=== PATIENT | male | born 1960 | race Caucasian/White ===

== ENCOUNTER 2025-06-28 00:30 | Day surgery (SDC) | payer OTHER, SELFPAY ==
[2025-06-14 15:40] VITALS: BMI 26.4
--- OUTSIDE RECORDS SUMMARY | 2025-06-28 00:36 | XMS_ITS | Encounter Summary ---
Author Organization [facility] Address [address] [place] [address] Phone Care Team Providers Care Program Management Analyst Name Role Phone Rio Cummings MD Primary Care Provider [phone] Encounter Details Date Type Department Care Team (Late st Contact Info) Description 08/30/2017 Orders Only [facility] [address] [place] [address] Rio Cummings MD [address] [address] Screening for prostate cancer (Primary Dx); Routine lab draw Social History Tobacco Use Types Packs/Day Years Used Date Smoking Tobacco: Never Assessed Sex and Gender Information Value Date Recorded Sex Assigned at Not on file 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 Gender Identity Male 09/26/2020 10:57 AM CDT Sexual Orientation Straight 09/26/2020 10 :57 AM CDT documented as of this encounter Plan of Treatment Scheduled Orders Name Type Priority Associated Diagnoses Orde r Schedule CBC with auto differential Lab Routine Routine lab draw Expected: 04/01/2018, Expires: 08/30/2018 Comprehensive metabolic panel Lab Routine Routine lab draw Expected: 04/01/2018, Expires: 08/30/2018 Lipid panel Lab Routine Routine lab draw Expected: 04/01/2018, Expires: 08/30/2018 PSA screen Lab Routine Screening for prostate cancer Expected: 04/01/2018, Expires: 08/30/2018 documented as of this encounter Visit Diagnoses Diagnosis Screening for prostate cancer- Primary Special screening for malignant neoplasm of prostate Routine lab draw documented in this encounter Care Teams Program Management Analyst Relationship Specialty Start Date End Date Rio Cummings MD [address]OL[address] [place] [address] PCP - General 06/16/14 documented as of this encounter
--- OUTSIDE RECORDS SUMMARY | 2025-06-28 00:36 | XMS_ITS | Encounter Summary ---
Author Organization [facility] Address [address] [place] [address] Phone Care Team Providers Care Dealer Support Technician Name Role Phone Rio Cummings MD Primary Care Provider [phone] Encounter Details Date Type Department Care Team (Late st Contact Info) Description 04/02/2018 Orders Only [facility] [address] [place] [address] Rio Cummings MD [address] [address] Social History Tobacco Use Types Packs/Day Years Used Date Smoking Tobacco: Never Smokeless Tobacco: Never Alcohol Use Standard Drinks/Week Comments Yes 0 (1 standard drink = 0.6 oz pur e alcohol) 5 times a week Sex and Gender Information Value Date Recorded Sex Assigned at Not on file 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 Gender Identity Male 09/26/2020 10:57 AM CDT Sexual Orientation Straight 09/26/2020 10 :57 AM CDT documented as of this encounter Plan of Treatment Not on file documented as of this encounter Procedures Procedure Name Priority Date/Time Associated Diagnosis Comments SCAN - LABS 04/02/2018 11:34 AM CDT documented in this encounter Results * SCAN - LABS (04/02/2018 11:34 AM CDT) us Rio Cummings MD Final Resu lt documented in this encounter Visit Diagnoses Not on filedocumented in this encounter Care Teams Dealer Support Technician Relationship Specialty Start Date End Date Rio Cummings MD [address] [address] PCP - General 06/16/14 documented as of this encounter
--- OUTSIDE RECORDS SUMMARY | 2025-06-28 00:36 | XMS_ITS | Continuity of Care Document ---
Author Organization [facility] Address [address] [place] [address] [address] [place] [address] Phone Care Team Providers Care Metal Moulder Name Role Phone Jose PT, MS, Lai Unavailable Unavailable Procedures Procedure Date PT RE-EVALUATION THERAPEUTIC EXERCISES NEUROMUSCULAR RE-ED FUNC ACTIVITY HOT/COLD PACK THERAPEUTIC EXERCISES NEUROMUSCULAR RE-ED FUNC ACTIVITY HOT/COLD PACK THERAPEUTIC EXERCISES NEUROMUSCULAR RE-ED FUNC ACTIVITY HOT/COLD PACK THERAPEUTIC EXERCISES NEUROMUSCULAR RE-ED FUNC ACTIVITY HOT/COLD PACK ELECTRIC STIMULATION UNATT THERAPEUTIC EXERCISES NEUROMUSCULAR RE-ED MANUAL THERAPY FUNC ACTIVITY HOT/COLD PACK ELECTRIC STIMULATION UNATT PT EVALUATION THERAPEUTIC EXERCISES MANUAL THERAPY HOT/COLD PACK ELECTRIC STIMULATION UNATT Advance Directives Directive Yes / No Effective Date File Name No Information Encounters Encounter Description Practice Location Reason(s) For Visit Diagnoses Date Provider Providers Copied on Encounter [facility], [address] [place], [place] [address], [place], [place], [id number], [place] tel:[phone] [place] No Information 5 Jose Hoyt. [address] [facility], [address], [place], [address], [place]. tel:[phone] Referring Provider: Kendall [address], [place], [address]. tel:[phone] [place] [address] [place] [address], [id number], tel:[phone] [place] No Information Apr-0 3-201 5 Jose Lai. [address] [place] [address], [address], [place], [place], [facility], . tel: [phone] Referring Provider: Rio Cummings, [address], [place], [address]. tel:[phone] [place] [address], [id number], tel:[phone] [place] No Information Mar-2 7-201 5 Jose Lai. [address] [place] [address], [address], [place], [place], [facility], . tel: [phone] Referring Provider: Kendall [address], [place], [address]. tel:[phone] [place] [address] [place] [address], [id number], [place] tel:[phone] [place] No Information Mar-2 5-201 5 Jose Lai. [address] [place] [address], [address], [place], [place], [facility], . tel: [phone] Referring Provider: Kendall [address], [place], [address]. tel:[phone] [place] [address] [facility] [address] [place] [address], [id number], [place] tel:[phone] [place] No Information Mar-1 8-201 5 Jose Lai. [address] [place] [address], [address], [place], [place], [facility], . tel: [phone] Referring Provider: Kendall [address], [place], [address]. tel:[phone] [address] [place], [place] [id number] [facility] [address] [place] [address], [place], [id number], [place] tel:[phone] [place] 5 Jose Hoyt. [address] [facility], [address], [place], [address], [place]. tel:[phone] Referring Provider: Rio Cummings, [address], [place], [address]. tel:[phone] Family History Family Member Type Diagnosis Age At Onset No Information Payers Payer name Insurance type Covered libertarian ID Authoriza tianne(s) [facility] [id number] [facility] 2014 Social History Type Description Quantity Date Captured Comments Sex Male Smoking Status No Information Chief Complaint And Reason For Visit No Information Reason For Referral Reason For Referral No Information History Of Present Illness Encounter Date Complaint History Of Prese nt Illness No Information Functional Status Date Functional Assessmen t No Information Instructions Date Instruction Additional Infor mation No Information Assessments Type Assessment Date No Information Patient Care Teams Name Effective Dates (start - stop) Status Members No Information
--- OUTSIDE RECORDS SUMMARY | 2025-06-28 00:36 | XMS_ITS | Clinical Summary ---
Author Organization 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 Meanwhile arrange x ray of the right hand Routine physical examination 04/07/2018 Assessment & Plan (03/19/2025 12:49 PM CDT): IMMUNIZATIONS WERE REVIEWED EYE EXAM AND DENTAL UPTODATE RIGHT SHOULDER PAIN/ NECK PAIN ARRANGE X RAYS USE PRM MOBIC AVOID OTC NSAIDS RECTLA EXAM GUAIAC NEG ARRANGE COLONSCOPY CUCO MIXED HYPERLIPIMDEIA GOAL LDL IS UNDER 100 Assessment & Plan (03/19/2024 12:37 PM CDT): Immunizations were reviewed/ he is doing well / PHYSICAL exam was NL today / recTAL EXAM WAS DONE todayGUAIAC NEG / I am awaiting his labs FROM [facility] WE HAD CALLED THE LAB TO GET A FAX FROM THEM . PATIENT IS DUE FOR A COLONSCOPY WHICH WILL BE ARRANGE AT [place] UPON PATIENTS REQUEST A REFERRAL WILL BE SENT TODAY Chronic left shoulder pain 04/07/2018 Immunizations Immunization Administration Dates Next Due Flucelvax Influenza Quad 09/03/2020,11/29/2019 Influenza, Quadrivalent, Tabitha l Culture-based MDCK, Preservative Free, Antibiotic Free, Intramuscular 10/04/2023 Influenza, Quadrivalent, Spl it, Preservative Free, Intramuscular 09/15/2018 Influenza, Trivalent, Cell Culture-based MDCK, Preservative Free, Antibiotic Free, Intramuscular 07/23/2024 Influenza, Trivalent, IM (MDV) 09/23/2021 Influenza, Unspecified 09/01/2023(Deferr ed: Patient Refused),09/03/2020 Social History Tobacco Use Types Packs/Day Years Used Date Smoking Tobacco: Never Smokeless Tobacco: Never Tobacco Cessation:Counseling Given: Not Answered Alcohol Use Standard Drinks/Week Comments Yes 0 (1 standard drink = 0.6 oz pur e alcohol) 5 times a week PHQ-2 Answer Date Recorded PHQ-2 Total Score (If total score is 3 or more points, staff should administer the PHQ-9) 0 03/19/2025 Sex and Gender Information Value Date Recorded Sex Assigned at Not on file 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 Gender Identity Male 09/26/2020 10:57 AM CDT Sexual Orientation Straight 09/26/2020 10 :57 AM CDT Obstetrics History Last Filed Vital Signs Vital Sign Reading Time Taken Comments Blood Pressure 116/60 03/19/2025 8:18 AM CDT Pulse 52 03/19/2025 8:18 AM CDT Temperature 36.8 C (98.2 F) 03/19/2025 8:18 AM CDT Respiratory Rate 16 03/19/2025 8:1 8 AM CDT Oxygen Saturation 95% 03/19/2025 8:18 AM CDT Inhaled Oxygen Concentration - - Weight 83.8 kg (184 lb 12.8 oz) 03/19/2025 8:18 AM CDT Height 172.7 cm (5' 8) 03/19/2025 8:18 AM CDT Body Mass Index 28.1 03/19/2025 8:18 AM CDT Plan of Treatment Health Maintenance Due Date Last Done Comments Hepatitis C Screening 1960 Prostate Cancer Screening-PSA 1960 DTaP/Tdap/Td Vaccine (1 - Tdap) 1972 Hepatitis B Screening 1979 Zoster Vaccine (1 of 2) 2011 Colon Cancer Screening-Colonoscopy 03/31/2023 03/31/2013 Covid-19 Vaccine ( season) 2024 10/04/2023, 03/07/2023, 09/23/2021, Additional history exists Influenza Vaccine (#1) 2025 , 10/04/2023, 09/23/2021, Additional history exists Depression Screening 03/19/2026 03/19/2025, 03/13/2024, 07/06/2022 Regular Well Visit/Exam 18-64 03/19/2026 03/19/2025, 03/13/2024, 07/06/2022, Additional history exists Colon Cancer Screening-CT Colonography Discontinued 03/31/2013 Colon Cancer Screening-DNA Stool Discontinued 03/31/2013 Colon Cancer Screening-FIT Discontinued 03/31/2013 Colon Cancer Screening-Sigmoidoscopy Discontinued 03/31/2013 Pneumococcal vaccine <65 Aged Out No longer eligible based on patient's age to complete this topic Procedures Procedure Name Priority Date/Time Associated Diagnosis Comments COLONOSCOPY 03/31/2013 12:00 AM CDT from Last 3 Months or Most Recently Relevant to Health Maintenance Results * COLONOSCOPY (03/31/2013 12:00 AM CDT) Anatomical Region Laterality Modality Other Narrative 03/31/2013 12:00 AM CDT Ordered by an unspecified provider. Procedure Note Provider, MD Susu - 03/31/2013 12:00 AM CDT PROCEDURE REPORT Patient: DAIANA GOINS Account: [id number] Room No: : 1960 Patient Type: SDS Attend.: Blake Liz M.D. Admit Date: 03/31/2013 Dict.: Blake Liz M.D. Disch. Date: 03/31/2013 NAME OF PROCEDURE: Colonoscopy. DATE OF PROCEDURE: 03/31/13 REFERRING PHYSICIAN: Dr. Cummings. PREVIOUS PROCEDURE: None. X-RAYS: None. HISTORY AND PHYSICAL EXAM: The patient is a 52-year-old male referred nowfor screening colonoscopy. He denies any specific complaints. He isotherwise doing clinically well. PHYSICAL EXAMINATION: General: Is that of a well-developed,well-nourished white male in no acute distress. He is nonicteric. Lungs: His lungsare clear. Heart: Regular. GI: Soft, supple. Extremities: Showed nocalf pain, cords or edema. PREPROCEDURE DIAGNOSIS: Screening colonoscopy in a 52-year-old male. SURGEON: Blake Liz M.D. INSTRUMENT USED: Biomimedica video endoscope. MEDICATIONS: Per anesthesia. FINDINGS: The colonoscope was introduced into the rectum lateral positionand passed to the cecum. The patient tolerated procedure well. There wereno complications. On withdrawal of the colonoscope, the mucosa appearednormal with normal vascular pattern. No polyps or masses were noted in thececum, right, transverse or left colons. The rectosigmoid and rectum wereotherwise normal. Retroflex view of the internal anal area showed small internal hemorrhoidal tissue. Perianal exam showed no perianal disease, norectal masses. Prostate was normal for age. COMPLICATIONS: None. POSTPROCEDURE DIAGNOSES: Normal screening colonoscopy to cecum with a withdrawal time of 8 minutes and 42 seconds. Preparation was excellent. POSTPROCEDURE ORDERS: 1) Post sedation instructions. 2) High fiber diet. 3) [employer] screening recommendations for follow up inten years. 4) Follow up with Dr. Cummings. Blake Liz M.D. Sonam TD: 03/31/2013 14:51 CC: Rio Cummings M.D. Authenticated by Blake Liz MD On 04/06/2013 12:56:27 PM us Historical Provider ENDOSCOPY PROCEDURES Cathy l Result from Last 3 Months or Most Recently Relevant to Health Maintenance Insurance Care Teams Agent Ticketing Gate Relationship Specialty Start Date End Date Rio Cummings MD [address] [place] [address] PCP - General 06/16/14
--- OUTSIDE RECORDS SUMMARY | 2025-06-28 00:36 | XMS_ITS | Referral Summary ---
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 Gender Identity Male 09/26/2020 10:57 AM CDT Sexual Orientation Straight 09/26/2020 10 :57 AM CDT Last Filed Vital Signs Vital Sign Reading Time Taken Comments Blood Pressure 116/60 03/19/2025 8:18 AM CDT Pulse 52 03/19/2025 8:18 AM CDT Temperature 36.8 C (98.2 F) 03/19/2025 8:18 AM CDT Respiratory Rate 16 03/19/2025 8:18 AM CDT Oxygen Saturation 95% 03/19/2025 8:18 AM CDT Inhaled Oxygen Concentration - - Weight 83.8 kg (184 lb 12.8 oz) 03/19/2025 8:18 AM CDT Height 172.7 cm (5' 8) 03/19/2025 8:18 AM CDT Body Mass Index 28.1 03/19/2025 8:18 AM CDT Plan of Treatment Not on file Procedures Procedure Name Priority Date/Time Associated Diagnosis Comments COLONOSCOPY 03/31/2013 12:00 AM CDT from Last 3 Months or Most Recently Relevant to Health Maintenance Results * COLONOSCOPY (03/31/2013 12:00 AM CDT) Anatomical Region Laterality Modality Other Narrative 03/31/2013 12:00 AM CDT Ordered by an unspecified provider. Procedure Note Provider, MD Susu - 03/31/2013 12:00 AM CDT PROCEDURE REPORT Patient: DAIANA GOINS Account: [id number] Room No: : 1960 Patient Type: [facility] Attend.: Blake Liz M.D. Admit Date: 03/31/2013 Dict.: Blake Liz M.D. Disch. Date: 03/31/2013 NAME OF PROCEDURE: Colonoscopy. DATE OF PROCEDURE: 03/31/13 REFERRING PHYSICIAN: Dr. Cummnigs. PREVIOUS PROCEDURE: None. X-RAYS: None. HISTORY AND [...] male. SURGEON: Blake Liz M.D. INSTRUMENT USED: Dynamics Direct video endoscope. MEDICATIONS: Per anesthesia. FINDINGS: The [...] sedation instructions. 2) High fiber diet. 3) [employer] screening recommendations for follow up inten years. 4) Follow up with Dr. Cummings. Blake Liz M.D. MA/erwin TD: 03/31/2013 14:51 CC: Rio Cummings M.D. Authenticated by Blake Liz MD On 04/06/2013 12:56:27 PM Historical Provider ENDOSCOPY PROCEDURES Cathy l Result from Last 3 Months or Most Recently Relevant to Health Maintenance Insurance [facility] CHOICE PLUS [facility] CHOICE PLUS [facility] CHOICE PLUS Care Teams Air Conditioning Supervisor Relationship Specialty Start Date End Date Rio Cummings MD [address] [place] [address] PCP - General 06/16/14
--- OUTSIDE RECORDS SUMMARY | 2025-06-28 00:36 | XMS_ITS | Continuity of Care Document ---
Author Organization [facility] Address [address] [address] Phone Care Team Providers Care Manager Instrumentation Name Role Phone Carlos Sethi MD Unavailable Unavailable Allergies, Adverse Reactions, Alerts Substance Reaction Status Criticality No Known Allergies Active No Inform ation Medications Medication Instructions Dosage Effective Dates (start - stop) Status Comments ipratropium bromide 21 mcg (0.03 %) nasal spray spray 2 spray by intranasal route 2- 3 times every day in each nostril as needed for runny nose, post-nasal drainage 2.00 spray - Active Procedures Procedure Date Perc Test Intradermal Test New (Level 3) OFFICE/OUTPATIENT VISIT Co BLADDER CLEANER Registration Fee Advance Directives Directive Yes / No Effective Date File Name No Information Encounters Encounter Description Practice Location Reason(s) For Visit Diagnoses Date Provider Providers Copied on Encounter [facility], [address] [place] [address], [id number], tel:[phone] [facility] No Information [address], [place], [address], [place]. tel:[phone] Referring Provider: Carlos Sethi, [address], [place], [address]. tel:[phone] [facility], [address] [place] [address], [id number], tel:[phone] [facility] No Information Jossie Gonzalez. [address] [place], [place], [facility], . tel:[phone] Referring Provider: Carlos Sethi, [address], [place], [place], [facility]. tel:[phone] New (Level 3) OFFICE/OUTPAT IENT VISIT [facility], [address] [place] [address], [id number], tel:[phone] [facility] [place] symptoms (chief complaint) Body mass index (BMI) 26.0-26.9, adultChronic rhinitis 4 Jossie Gonzalez. [address] [place], [place], [facility], . tel:[phone] Referring Provider: Carlos Sethi, [address] , [place], [place], [facility]. tel:[phone] [facility], [address] [place] [address], [id number], tel:[phone] [address] [place] [address] No Information [facility] . Referring Provider: Prov Taylac. Family History Family Member Type Diagnosis Age At Onset Problem No family history of Rhiniti s Problem No family history of Asthma Payers Payer name Insurance type Covered constitution party ID Authoriza tion(s) [facility] [employer] CI [id number] Social History Type Description Quantity Date Captured Comments Alcohol Use Details Unknown Caffeine Use Details Unknown Tobacco Use Status No Information Smoking Status No Information Sex Male Gender Identity Chief Complaint And Reason For Visit No Information Reason For Referral Reason For Referral No Information History Of Present Illness Encounter Date Complaint History Of Prese nt Illness allergy symptoms RhinitisThe pat ient has a history of perennial rhinitis with seasonal worsening in winter. The symptoms include rhinorrhea (ant < post), nasal congestion, and sneezing w/o ocular pruritus and tearing. Currently, the patient is not on any medications. Previously they have tried an unknown nasal spray without much benefit; he also has used claritin without benefit. He has never had allergy testing in the past.He has no history of asthma and has never been on an inhaler.PMH: chronic back pain, otherwise as abovePSH: noneMedication Allergies: NKDANo FH of asthma, rhinitis, SHTobacco: Never smokerEnvironmental HistoryLives in a house w/ central air/forced heat, w/o evidence of mold/water damagePets: none Functional Status Date Functional Assessmen t No Information Instructions Date Instruction Additional Infor otfjenifer - start ipratropium nasal spray, 2 sprays each nostril 3 times daily as needed for runny nose / post-nasal drainage- Please remember to point the nasal spray away from the nasal septum, up and outwards towards the top of the ears on both sides- if nose bleeding occurs, please hold the nasal spray for 2-3 days to allow for healing of the nasal tissue (you may use nasal saline gel or vaseline on a q-tip to help heal the tissue), then restart the nasal spray.- If nose bleeding recurs, please stop the nasal spray and contact our office to set up an appointment for further guidance Related to Chronic rhinitis Giving encouragement to exercise Related to Body mass index [BMI] 26.0-26.9, adult Assessments Type Assessment Date No Information Patient Care Teams Name Effective Dates (start - stop) Status Members No Information
--- OUTSIDE RECORDS SUMMARY | 2025-06-28 00:36 | XMS_ITS | Clinical Summary ---
Author Organization [facility] Address [address] [place] [id number] Care Team Providers Care Sleep Medicine Physician Name Role Phone Unavailable Primary Care Provider Unavailabl e Social History Tobacco Use Types Packs/Day Years Used Date Smoking Tobacco: Never Assessed Sex and Gender Information Value Date Recorded Sex Assigned at Not on file Legal Sex Male 3:03 PM CDT Gender Identity Not on file Sexual Orientation Not on file Plan of Treatment Health Maintenance Due Date Last Done Comments Colorectal Cancer Screening Colonoscopy (10 Years) 1960 Annual Physical 1964 Hepatitis C 1979 DTaP, Tdap and Td Vaccines ( 1 - Tdap) 1980 Pneumococcal Vaccine: 50+ Ye ars (1 of 1 - PCV) 2011 Zoster Vaccines (1 of 2) 2011 COVID-19 Vaccine (2023-2 5 season) 2024 RSV Immunization or 60+ Years (1 - 1-dose 75+ series) 2036 Meningococcal B Vaccine Aged Out No l onger eligible based on patient's age to complete this topic Meningococcal Vaccine Aged Out No negrito stephania eligible based on patient's age to complete this topic RSV Immunizations Under 20 Months Aged Out No longer eligible based on patient's age to complete this topic
--- OUTSIDE RECORDS SUMMARY | 2025-06-28 00:36 | XMS_ITS | Data Portability ---
Author Organization [place] [facility] Address [address] [place] [address] Assessment Encounter Date Assessment Date Assessment LastModified by Organization Details LastModified Time 04/09/2025 04/09/2025 Tetanus prophylaxis - The patient scraped their leg on rebar, and it's been over ten years since their last tetanus shot. - Advised the patient to obtain a tetanus shot at a pharmacy covered by their insurance, either DTAP or TDAP, based on pharmacy recommendation . - Clean the wound with soap and water; use triple antibiotic ointment for care. - If using hydrogen peroxide, ensure it is diluted with sterile water. [email or web address] Not available 04/09/2025 20:52:31 Plan of Treatment Reminders Order Date Submit Date Provider Last Modified By Organization Details Last Modified Time Details Appointments None record ed. Lab None record ed. Referral None record ed. Procedures None record ed. Surgeries None record ed. Imaging None record ed. Medication Orders None record ed. Patient TargetsNo targets recorded. Patient Instructions Encounter Date Encounter Id Patient Instructions Last Modified By Organization Details Last Modified Time 04/09/2025 [id number] Summary of Today's Visit: Today, we discussed a recent scrape you received on your leg from a piece of rebar. The injury occurred about an hour before our conversation. You're trying to ensure you're up to date with your tetanus vaccination, as your insurance company does not have a record of your last shot. We talked about obtaining a tetanus booster, potentially the DTAP or TDAP, especially since it s been over ten years since your last one. Tetanus Vaccination: Since the injury involves a piece of metal, it is advisable to get a tetanus shot. Check with your local pharmacies, such as [facility], to see if they carry the vaccine and if it can be covered by your insurance. Pharmacy staff will help you determine if you need the DTAP or TDAP booster, based on your age and vaccination history. Wound Care Instructions: Keep the scrape clean by washing it with soap and water, which is generally sufficient. If you choose to use hydrogen peroxide, ensure it is diluted with sterile water, as undiluted peroxide can harm the tissue. Applying a triple antibiotic ointment can help prevent infection. Avoid using full-strength hydrogen peroxide on the wound, as it may cause damage. Follow-Up Actions: - Visit a local pharmacy to get your tetanus booster. - Clean the wound regularly with soap and water. - Apply triple antibiotic ointment to the scrape. - Contact us if you notice any signs of infection, such as increased redness, swelling, or pus. [email or web address] Not available 04/09/2025 20:52:19 Reason for Referral None Reported. Medical Equipment None Reported. Allergies No known drug allergies Medications Not known to be on any medication Vitals None Recorded Social History None recorded. Functional Status None recorded. Mental Status None recorded. Family History Nothing Reported. Medical History No medical history recorded. Past Encounters Encounter ID Performer Location Encounter Start Date Encounter Closed Date Diagnosis/Indication Diagnosis SNOMED-CT Code Diagnosis ICD10 Code Diagnosis Note [id number] LORENZO Hooper [facility] [address] [facility] [place] [address] 04/09/2025 20:47:55 04/12/2025 00:16:48 Consultation [id number] Z71.2 Health Concerns Section Related Observation LastModified by Organization Detai ls LastModified Time None Recorded Concern Status LastModified by Organization Details LastModified Time None Recorded Advance Directives Directive None Recorded Payers Insurance Date Sequence Insurance Name Policy Number Policy Guzman Covered Member ID Guzman Member ID Guarantor Name 04/09/2025 1 *SELF PAY* Yamil Arenas 04/09/[address] [facility] [id number] Russ Arenas [id number] Russ Arenas 04/09/2025 2 [facility] [id number] Russ Arenas [id number] Russ Arenas 04/09/2025 3 *SELF PAY* [id number] Russ Arenas [id number] Russ Arenas 04/09/2025 [employer] [id number] Russ Arenas [id number] Russ Arenas Notes Date Note Type Note Provider Name and Address Organization Details Recorded Time 04/09/2025 text/html ROS as noted in the HPI Patient name , location, and phone number confirmed. Limitations of telemedicine evaluations reviewed, all questions answered, and verbal consent obtained to treat via secure video telemedicine interaction. The patient consents to the use of AI scribe technology. Clinician attests that the clinician is physically located in the following state at the time of the visit: [place] CC: Scrape on leg from rebar HPI: The patient, a 64 y/o male, presents following a recent scrape on their leg caused by rebar. The incident occurred less than an hour prior to the visit. The patient states that the scrape is not deep and does not describe any severe symptoms. They initially faced issues obtaining a tetanus booster due to insurance-related problems. The patient is unsure of the date of their last tetanus vaccination, estimating it was over ten years ago. After further communication with the insurance provider, they discovered they are eligible for a tetanus shot through a participating pharmacy. In the meantime, they have cleaned the wound with soap and water, following advice to avoid using undiluted hydrogen peroxide. The patient reports no associated symptoms such as severe pain. They have applied triple antibiotic ointment for further wound care. ELIDIA Hooper[address], [place], [address], [facility] 04/11/2025 23:44:15
[2025-06-28 09:17] VITALS: BP 140/77; PULSE 55; RESP 20; TEMP 36.1; O2SAT 100; BMI 26.4
[2025-06-28] MEDS: LACTATED RINGERS 1,000 ML 150 ML IV CONT (09:35)
--- NOTE | 2025-06-28 09:36 | P.PNAN_ITS ---
Anes - Initial Pre Proc Eval Procedure: Operation Date: 06/28/25 10:30 Proposed Procedures p Screening Colonoscopy - Israel Bradford MD Date/Time: 06/28/25 09:36 Surgeon: Israel Bradford MD Pre Op Diagnosis: Screening Patient Data Age: 64 Gender: M Height: 1.73 m Weight: 78.8 kg Last Vital Signs Temp 36.1 C L 06/28/25 09:17 Pulse 55 L 06/28/25 09:17 Resp 20 06/28/25 09:17 BP 140/77 06/28/25 09:17 Pulse Ox 100 06/28/25 09:17 O2 Del Method Room Air 06/28/25 09:17 Allergies Allergy/AdvReac Type Severity Reaction Status Date / Time No Known Allergies Allergy Verified 06/28/25 09:16 Home Medications ?Medication ?Instructions ?Recorded ?Confirmed ?Type No Home Medications 06/14/25 06/14/25 History Patient hx anesthesia problems: none Family hx anesthesia problems: none Results Review: All pre-operative results and documents have been reviewed as part of the pre- operative evaluation. [facility] Social History Social History Smoking status: Never smoker Alcohol intake: current Drinks per week: 14 Alcohol use details: beer Substance use type: does not use Living arrangements: alone Spiritual care concerns: No Anes - Eval Final PreProcedure Day of Procedure 06/28/25 09:36 Patient weight: overweight Heart: regular rate and rhythm Lungs: clear to auscultation Airway: Mallampati scale class II Neurological: alert and oriented Last oral intake: >/= 8 hours ASA classification: III Emergent: no Anesthetic plan: proceed Anesthesia type and monitoring: general GIVS and standard monitoring Results Review: All pre-operative results and documents have been reviewed as part of the pre- operative evaluation. Informed Consent: The patient's anesthetic plan and its attendant risks and benefits were discussed with the patient/family/POA. Questions were solicited and answers provided to the satisfaction of the patient/family/POA.
--- NOTE | 2025-06-28 09:47 | PM.HPGS ---
History of Present Illness History of Present Illness Consent: Risks, benefits, and alternatives have been discussed and questions answered. Patient agrees to proceed with procedure. Chief complaint: Screening Narrative: Russ Arenas is a 64 year old male here for screening colonoscopy, last one more than 10 years ago, also frequent bowel movements but this is chronic. Review of Systems Review of Systems: All systems reviewed & are unremarkable except as noted in HPI and below PMFSH Past Medical History Medical History (Updated 06/28/25 @ 09:48 by Israel Bradford MD) Colon cancer screening Social History Social History Smoking status: Never smoker Alcohol intake: current Drinks per week: 14 Alcohol use details: beer Substance use type: does not use Living arrangements: alone Spiritual care concerns: No Meds Home Medications and Allergies Home Medications ?Medication ?Instructions ?Recorded ?Confirmed ?Type No Home Medications 06/14/25 06/14/25 History Allergies Allergy/AdvReac Type Severity Reaction Status Date / Time No Known Allergies Allergy Verified 06/28/25 09:16 Vital Signs Vital Signs - 24 hr 06/28/25 09:17 Temperature 97 F L Pulse Rate 55 L Respiratory Rate 20 Blood Pressure 140/77 Pulse Oximetry 100 Oxygen Delivery Room Air Exam Const: General: comfortable and no acute distress HENMT: Face/Nose/Sinus: Normal nares present Eyes: General: appearance normal, both eyes and all related structures Neck: Neck: no JVD Resp: Auscultation: clear to auscultation bilaterally Cardio: Rate: regular rate Rhythm: regular rhythm GI: Inspection: non-distended GI Palp: Yes Soft to palpation Skin: General skin exam: normal color Neuro: General: gait normal Speech: normal speech Extrem: General: normal to inspection Psych: Mental Status: mental status grossly normal Assessment and Plan Assessment and plan (1) Colon cancer screening: Code(s): Z12.11 - Encounter for screening for malignant neoplasm of colon Status: Acute Assessment and Plan: colonoscopy
[2025-06-28 10:02] VITALS: BP 94/58; PULSE 51; RESP 20; O2SAT 97
--- NOTE | 2025-06-28 10:02 | S_PTH ---
PATIENT: Russ Arenas LOC: [facility] Gonzalez#:[id number] AGE/SX: 64/M ROOM: RE06/28/[address]: Israel Bradford MD : 1960 BED: DIS: 06/28/2025 SPEC #: [id number] RECD: 06/28/25 11:19 STATUS: ANDRA REToshia #: [id number] EDDIE: 06/28/25 10:[address]: Israel Bradfodr DEPT: [facility] Surgical RECD BY: Lacey Vivar ENTERED: 06/28/25 11:19 SP TYPE: Surgical OTHR DR: Rio Cummings, Tissues: A - Colon Biopsy Procedures: Hematoxylin and Eosin Stain Gross and Microscopic Level 4
[2025-06-28 10:12] VITALS: BP 100/60; PULSE 52; RESP 20; O2SAT 98
[2025-06-28 10:23] VITALS: BP 101/59; PULSE 48; RESP 20; O2SAT 100
== END 2025-06-28 10:40 | disposition home or self-care (01) ==
PROVIDERS: PCP Internal Medicine Infectious Disease; Referring Provider Internal Medicine Infectious Disease; Visit Provider Internal Medicine Gastroenterology
PROC: 0DJD8ZZ Inspection of Lower Intestinal Tract, Via Natural or Artificial Opening Endoscopic (ICD-10-PCS; CPT 45378; principal; 2025-06-28 10:30)
DX: Z12.11 Encounter for screening for malignant neoplasm of colon (principal); K52.832 Lymphocytic colitis; K64.8 Other hemorrhoids; K57.30 Diverticulosis of large intestine without perforation or abscess without bleeding
CPT/HCPCS: 45380; 88305; J2003; J2704; J7120